=== PATIENT | female | born 1970 | race Caucasian/White ===

== ENCOUNTER 2020-01-20 08:42 | Emergency (ER) | payer SELFPAY ==
[2020-01-20] VITALS (11 sets, daily range): BP systolic 121–164; BP diastolic 83–104; PULSE 69–102; RESP 16–18; TEMP 36.4; O2SAT 97–100; BMI 25.8
--- NOTE | 2020-01-20 09:41 | PC.NURSE ---
US guided IV obtained. Blood drawn with cultures, labeled and taken to lab. Pt up to BR to provide urine sample.
[2020-01-20] MEDS: sodium chloride 0.9% 1,000 ML 999 ML IV (09:53)
--- NOTE | 2020-01-20 09:55 | CT_ITS ---
WS: [id number] CT ABDOMEN AND PELVIS WITH AND WITHOUT CONTRAST HISTORY: abd pain, intrauterine cryoablation history. Severe RIGHT pelvic pain. Status post surgery. TECHNIQUE: Unenhanced 5 mm axial imaging first performed through the abdomen. Post contrast imaging t hrough the abdomen and pelvis. Oral contrast has not been provided. Sagittal and coronal reformats a re submitted. All CT scans at [facility] use at least one of these dose optimization tech niques: automated exposure control; mA and/or kV adjustment per patient size (includes targeted exams where dose is matched to clinical indication); or iterative reconstruction. CONTRAST: Omnipaque 300; 95 mL IV. DLP: 1565.47 mGy.cm COMPARISON: 08/30/2010 Lung bases are clear. Normal size heart. Small hiatal hernia. Liver is normal size. No bile duct dila tation. Spleen is normal size with granulomata. Negative pancreas. Normally distended gallbladder. No bile duct dilatation. Normal pancreas. 8mm nodule associated with the RIGHT adrenal gland. Too smal l to characterize. Negative LEFT adrenal gland. Normal size RIGHT kidney. No obstruction. Negative LE FT kidney. Mild atherosclerosis aorta. Small central ventral abdominal wall hernia contains fat only. Moderate diffuse constipation. The appendix is normal. A few scattered sigmoid diverticula. Well-distended urinary bladder. No free fluid in the pelvis. Uterus is midline and slightly enlarged and heterogeneous. There are cystic areas which connect to the endometrium and probably related to th e prior endometrial ablation. Adenomyosis may appear similar. There is additional mild soft tissue th ickening in the RIGHT adnexa in the expected location of the round ligament and fallopian tube. This may be postsurgical changes associated with the recent fibroidectomy. No osseous abnormalities. CT/CT abdomen pelvis wo/w [id number] IMPRESSION: 1. No renal obstruction. 2. Normal appendix. 3. Cystic changes along the endometrium are probably related to prior adenomyo sis. 4. No free fluid or adenopathy. 5. Too small to characterize nodule social with the RIGHT adrenal gland. 6. Moderate constipation. Notified Dav Rehman DO at 01/20/2020 10:58 AM.
--- NOTE | 2020-01-20 09:58 | PC.NURSE ---
Urine sample obtained, labeled and sent to lab. Pt requesting pain meds, physician notified.
[2020-01-20 10:04] LABS: Alanine Aminotransferase 45 U/L (0-33); Albumin Level 3.9 g/dL (3.5-5.2); Alkaline Phosphatase 105 IU/L (35-105); Aspartate Amino Transferase 30 U/L (0-32); Blood Urea Nitrogen 16 mg/dL (6-20); Calcium 8.8 mg/dL (8.5-10.5); Carbon Dioxide 25 mmol/L (22-29); Chloride 102 mmol/L (98-107); Glomerular Filtration Rate 76.2 mL/min (90-130); Glucose 94 mg/dL (65-115); Lipase 22 U/L (13-60); Osmolality Calculated 285 mOsm/kg (285-295); Sodium 137 mmol/L (136-145); Total Bilirubin 0.3 mg/dL (0.15-1.2); Total Protein 6.9 g/dL (6.6-8.7)
[2020-01-20] MEDS: ondansetron 2 mg/ML SDV 2 mL 4 MG IVP (10:06)
[2020-01-20] MEDS: morphine 4 mg/mL SDV 1 mL IVP ×2 (10:06→10:50)
[2020-01-20 10:07] LABS: Anion Gap 14.2 (5-19); Potassium 4.2 mmol/L (3.5-5.1)
--- NOTE | 2020-01-20 10:22 | ED_ITS ---
HPI - Abdominal Pain General: Chief Complaint: Abdominal Pain Stated Complaint: Lower ABD pain/Post Surgery Time Seen by Provider: 01/20/20 09:00 History of Present Illness: HPI narrative: 49-year-old female comes in complaining of right lower quadrant pain for the last week its been getting increasingly intense she is moving around a lot on the exam table trying to find a comfortable position. She denies any hematuria or dysuria. She does have a history of some ovarian cysts and is previously a laparotomy for that as well as for endometriosis. She denies any fever denies any dysuria urgency or frequency. Denies flank pain. MD elicited complaint: abdominal pain Pertinent past history: other (Ovarian cyst and endometriosis) Onset (ago): week(s) (1) Pain Consistency: constant Location: RLQ Severity: severe Quality: cramping Radiation: none Migration to: no migration Exacerbating factors: nothing Relieving factors: nothing Associated Symptoms: Reports anorexia, chills, GI cramping, nausea and poor appetite; Denies belching, bloating, change in bowel habits, change in stool character, coffee ground emesis, constipation, diarrhea, dyspepsia, dysuria, excessive flatus, fever(s), heartburn, hematochezia, hematuria, hematemesis, fecal incontinence, loose stools, melena, syncope and vomiting Review of Systems Const: Reports: chills; Denies: fever(s) ENMT: Denies: throat pain, ear or mastoid pain, nasal discharge or nasal congestion Card: Denies: syncope Resp: Denies: dyspnea, productive cough or non-productive cough GI: Reports: nausea and GI cramping; Denies: vomiting, hematemesis, coffee ground emesis, heartburn, diarrhea, constipation, bloating, belching, excessive flatus, fecal incontinence, change in bowel habits, change in stool character, hematochezia or melena : Denies: dysuria or hematuria Skin/Breast: Denies: rash or pruritus Physical Exam Const: COMMON NORMALS: no acute distress GENERAL APPEARANCE: cooperative and comfortable ORIENTATION/CONSCIOUSNESS: Yes awake, Yes oriented to person, Yes oriented to place and Yes oriented to time HENMT: COMMON NORMALS: normocephalic, atraumatic, hearing grossly normal bilaterally, external ears normal, EAC's normal, TM's normal bilaterally, Normal nasal mucous membranes and turbinates present, moist oral mucous membranes and oropharynx normal HEAD & SCALP: normocephalic and atraumatic NOSE: Normal nasal mucous membranes and turbinates present EXTERNAL EAR: Yes external ears normal EXTERNAL AUDITORY CANAL: EAC's normal TYMPANIC MEMBRANE: TM's normal bilaterally Neck/C-Spine: COMMON NORMALS: no JVD Resp: COMMON NORMALS: normal respiratory effort, No retractions, No use of accessory muscles and clear to auscultation bilaterally AUSCULTATION: clear to auscultation bilaterally Cardio: COMMON NORMALS: no JVD, regular rate, regular rhythm and No murmurs present (Cardio) RATE: regular rate RHYTHM: regular rhythm GI: COMMON NORMALS: Soft to palpation and No hepatosplenomegaly present AUSCULTATION: Yes normoactive bowel sounds PALPATION: Yes Soft to palpation, Yes Tenderness to palpation present (GI) Details: RLQ, No Guarding due to palpation present (GI) and Yes No hepatosplenomegaly present Extremity: COMMON NORMALS: normal to inspection, capillary refill normal, no clubbing, cyanosis or edema, no calf tenderness and no pedal edema Neuro: SENSORIUM/ORIENTATION: Yes oriented to person, Yes oriented to place and Yes oriented to time Skin: COMMON NORMALS: no rashes or lesions noted GENERAL SKIN EXAM: no rashes or lesions noted Course Vital Signs: Vital signs: Vital Signs Temperature 97.6 F 01/20/20 08:56 Pulse Rate 69 01/20/20 12:30 Respiratory Rate 16 01/20/20 12:30 Blood Pressure 138/87 01/20/20 12:30 Pulse Oximetry 98 01/20/20 12:30 MDM - Abdominal Pain MDM Narrative: Medical decision making narrative: Discussed findings with the patient suspect uterine fibroids is the main cause of discomfort will discharge home with pain medications referral to gynecology Lab Data: Labs: Lab Results 01/20/20 01/20/20 01/20/20 Range/Units 09:41 09:41 09:50 WBC Cancelled Corrected WBC Cancelled RBC Cancelled Hgb Cancelled Hct Cancelled MCV Cancelled MCH Cancelled MCHC Cancelled RDW Cancelled Plt Count Cancelled MPV Cancelled Gran % Cancelled Neut % (Auto) Cancelled Lymph % (Auto) Cancelled [place] % (Auto) Cancelled Eos % (Auto) Cancelled Baso % (Auto) Cancelled Neut # (Auto) Cancelled Lymph # (Auto) Cancelled [place] # (Auto) Cancelled Eos # (Auto) Cancelled Baso # (Auto) Cancelled Absolute Gran (aut o) Cancelled Nucleated RBC % (a uto) Cancelled Nucleated RBCs # Cancelled Sodium 137 (136-145) mmol/L Potassium 4.2 (3.5-5.1) mmol/L Chloride 102 (98-107) mmol/L Carbon Dioxide 25 (22-29) mmol/L Anion Gap 14.2 (5-19) BUN 16 (6-20) mg/dL Creatinine 0.8 (0.5-0.9) mg/dL GFR Calculation 76.2 L (90-130) mL/min Glucose 94 (65-115) mg/dL Calculated Osmolal ity 285 (285-295) mOsm/k g Calcium 8.8 (8.5-10.5) mg/dL Total Bilirubin 0.3 (0.15-1.2) mg/dL AST 30 (0-32) U/L ALT 45 H (0-33) U/L Alkaline Phosphata se 105 (35-105) IU/L Total Protein 6.9 (6.6-8.7) g/dL Albumin 3.9 (3.5-5.2) g/dL Globulin 3.0 (1.3-4.6) g/dL Lipase 22 (13-60) U/L Urine Color Yellow (Yellow) Urine Appearance Clear (CLEAR) Urine pH 6 (5-7) Ur Specific Gravit y 1.010 (1.005-1.030) Urine Protein Neg (Negative) Urine Glucose (UA) Norm (Normal) Urine Ketones Negative (Negative) Urine Blood 2+ H (Negative) Urine Nitrate Negative (Negative) Urine Bilirubin Neg (Negative) Urine Urobilinogen Norm (Negative) mg/dL Ur Leukocyte Tamika ase Negative (Negative) Urine RBC 0-4 H (0-2) /hpf Urine WBC 0-4 H (0-5) /hpf Ur Squamous Epith Cells 0-4 H (0-5) /hpf Amorphous Sediment Not Reportable Urine Bacteria 1+ H (NONE) /hpf 11/16/20 Range/Units 10:50 WBC 15.5 H Corrected WBC RBC 4.66 Hgb 14.1 Hct 44.6 MCV 95.7 MCH 30.3 MCHC 31.6 RDW 13.3 Plt Count 360 MPV 9.0 Gran % Neut % (Auto) 75.5 Lymph % (Auto) 18.7 [place] % (Auto) 4.1 Eos % (Auto) 0.8 Baso % (Auto) 0.4 Neut # (Auto) 11.67 H Lymph # (Auto) 2.9 [place] # (Auto) 0.6 Eos # (Auto) 0.1 Baso # (Auto) 0.1 Absolute Gran (aut o) Nucleated RBC % (a uto) 0 Nucleated RBCs # 0.0 Sodium (136-145) mmol/L Potassium (3.5-5.1) mmol/L Chloride (98-107) mmol/L Carbon Dioxide (22-29) mmol/L Anion Gap (5-19) BUN (6-20) mg/dL Creatinine (0.5-0.9) mg/dL GFR Calculation (90-130) mL/min Glucose (65-115) mg/dL Calculated Osmolal ity (285-295) mOsm/k g Calcium (8.5-10.5) mg/dL Total Bilirubin (0.15-1.2) mg/dL AST (0-32) U/L ALT (0-33) U/L Alkaline Phosphata se (35-105) IU/L Total Protein (6.6-8.7) g/dL Albumin (3.5-5.2) g/dL Globulin (1.3-4.6) g/dL Lipase (13-60) U/L Urine Color (Yellow) Urine Appearance (CLEAR) Urine pH (5-7) Ur Specific Gravit y (1.005-1.030) Urine Protein (Negative) Urine Glucose (UA) (Normal) Urine Ketones (Negative) Urine Blood (Negative) Urine Nitrate (Negative) Urine Bilirubin (Negative) Urine Urobilinogen (Negative) mg/dL Ur Leukocyte Tamika ase (Negative) Urine RBC (0-2) /hpf Urine WBC (0-5) /hpf Ur Squamous Epith Cells (0-5) /hpf Amorphous Sediment Urine Bacteria (NONE) /hpf Discharge Plan Discharge Patient Disposition: Home Clinical Impression: Uterine fibroid Condition: Stable Prescriptions: New hydrocodone-acetaminophen 5-325 mg tablet 1 tab PO Q6H PRN (Reason: pain) Qty: 20 RF: 0 Zofran 4 mg tablet 4 mg PO Q6H PRN (Reason: nausea and vomiting) Qty: 15 RF: 0 Discharge Orders: Discharge Order (Routine); Ordered 01/20/20 Ordered By: Dav Rehman Activity Restrictions/Additional Instructions: Case management will make referral to gynecology for further evaluation. Coding Level of Care Code ED [place] [employer] Operator for [place] Fwd Exam Comprehensive
--- NOTE | 2020-01-20 10:26 | PC.NURSE ---
Pt in ct
[2020-01-20] MEDS: iohexol 300 mg/mL 100 mL Btl IV (10:27)
[2020-01-20 10:34] LABS: Add Urine Microscopic? YES; Bacteria Urine 1+ /hpf; Bilirubin Urine Neg (Negative); Blood Urine 2+ (Negative); Glucose Urine UA Norm (Normal); Ketones Urine Negative (Negative); Leukocyte Esterase Urine Negative (Negative); Nitrate Urine Negative (Negative); Protein Urine Neg (Negative); RBC Urine 0-4 /hpf (0-2); Squamous Epithelial Cell Urine 0-4 /hpf (0-5); Urine Appearance Clear (CLEAR); Urine Color Yellow (Yellow); Urobilinogen Urine Norm (Negative); WBC Urine 0-4 /hpf (0-5); pH Urine 6 (5-7)
--- NOTE | 2020-01-20 10:53 | PC.NURSE ---
CBC redrawn, labeled and sent to lab.
--- NOTE | 2020-01-20 11:07 | US_ITS ---
NOTE: Report was unsigned for reason: Order was edited. Original Signature date and time was: 01/20/20 @12:12 WS: [id number] TRANSABDOMINAL AND TRANSVAGINAL PELVIC ULTRASOUND HISTORY: pelvic pain COMPARISON: CT 01/20/2020. Uterus: Anteverted uterus measures 9.8 x 6.2 x 6.3 cm. Uterus is enlarged and lobulated and heterogeneous. There are areas of mixed echogenicity in the myometrium and extending to the junctional zone. The largest area in the anterior uterus measures 2.5 x 1.9 x 2.8 cm and is probably a fibroid. There are additional scattered areas of mixed echogenicity. Endometrium: Poorly visualized endometrium. Right ovary: 1.1 x 2.0 x 2.5 cm. No solid or cystic mass. Left ovary: 2.7 x 1.4 x 2.0 cm. No solid or cystic mass. MTDD US/US pelvic with transvaginal IMPRESSION: 1. Enlarged heterogeneous uterus. Most consistent with a fibroid uterus. 2. Endometrium is not visualized. This may be due to the position of the fibro ids with a prior ablation. Direct visualization and follow-up with MILITARY NURSE may be n ecessary to exclude endometrial neoplasm.
[2020-01-20 11:13] LABS: Basophils # 0.1 10^3/uL (0.0-0.1); Basophils % 0.4 %; Eosinophils # 0.1 10^3/uL (0.0-0.8); Eosinophils % 0.8 %; Hematocrit 44.6 % (37.0-47.0); Hemoglobin 14.1 g/dL (11.5-15.3); Lymphocytes # 2.9 10^3/uL (0.8-4.8); Lymphocytes % 18.7 %; Mean Corpuscular HGB Conc 31.6 g/dL (30.0-36.0); Mean Corpuscular Hemoglobin 30.3 pg (28.0-34.0); Mean Corpuscular Volume 95.7 fL (81-99); Monocytes # 0.6 10^3/uL (0.2-0.9); Monocytes % 4.1 %; Neutrophils # 11.67 10^3/uL (1.8-7.7); Neutrophils % 75.5 %; Nucleated Red Blood Cells % 0 %; Platelet Count 360 10^3/cmm (130-400); Red Blood Count 4.66 10^6/uL (4.1-5.3); Red Cell Distribution Width 13.3 % (12.1-15.1); White Blood Count 15.5 10^3/uL (4.0-10.0)
--- NOTE | 2020-01-20 11:18 | PC.NURSE ---
Pt pain still a 09/12. Pt updated on new order for US. Pt has call light in reach.
[2020-01-20] MEDS: ketorolac 30 mg/mL INJ IVP (11:33)
--- NOTE | 2020-01-20 12:22 | DCPLANNER ---
adult education manager was asked to schedule a follow up appointment for patient with [facility]. adult education manager called the [facility], spoke with Emi, gave clinic patients information. adult education manager was told that patients information would be printed and reviewed. Clinic will call patient with appointment information.
--- NOTE | 2020-01-22 13:26 | DCPLANNER ---
Addendum entered by Paige Reyes 01/23/20 09:48: Patients called case management associate asking about patients follow up appointment. financial compliance manager gave patients the appointment information. Patient does not have insurance, case management associate is mailing patient both of the marketing financial analyst applications to fill out and turn back in. financial compliance manager explained that if patient does not have a primary care physician that patient can fill out both of the financial and can get established with a primary care physician in [facility] or in [place] where there is [facility]. financial compliance manager called [facility] and told the clinic that case management associate informed patient of the scheduled appointment and mailed patient both of the marketing financial analyst applications. Original Note: Patient has a follow up appointment scheduled for Tuesday, February 11, 2020 at 8:[address] Da Silva. Clinic will call patient with appointment information.
--- NOTE | 2020-02-18 14:35 | DCPLANNER ---
Patient had a follow up appointment scheduled for 02.11.20 with [facility] - patient did attend appointment.
== END 2020-01-20 12:32 | disposition home or self-care (01) ==
PROVIDERS: Emergency Provider Family Medicine
DX: D25.9 Leiomyoma of uterus, unspecified (principal)
CPT/HCPCS: 12345; 36415; 74178; 76830; 76856; 80053; 81001; 83690; 85025; 96361; 96374; 96375; 99283; J1885; J2270; J2405; J7030; Q9967

== ENCOUNTER → 2020-05-04 09:19 | Outpatient (BNVA) | payer OTHER, SELFPAY | PROVIDERS: Visit Provider Obstetrics & Gynecology | DX: D25.9 Leiomyoma of uterus, unspecified (principal); G89.29 Other chronic pain; R10.2 Pelvic and perineal pain | CPT/HCPCS: 87635 ==

== ENCOUNTER 2020-05-06 13:49 | Observation (INO) | payer OTHER, SELFPAY ==
[2020-05-04 11:09] VITALS: BMI 25.7
--- NOTE | 2020-05-04 11:38 | ANES.PREANE2 ---
Pre-Anesthetic Assessment Pre-Anesthetic Assessment: Height/Weight: Height 1.73 m Weight 76.657 kg Preop Diagnosis: Chronic pelvic pain, post endometrial ablation syndrome, uterine fibroid Proposed Procedure: Operation Date: 05/06/20 07:00 Proposed Procedures p Laparoscopic Assist Vaginal Hystectomy 63494 R10.2 D25.9(Not Applicable) - Ethan Da Silva MD Familial anesthetic complications: None Social: Social History: Tobacco and No alcohol Comment: previous ETOH and drug abuse, occassional MJ use Exam: Pre-Anes Outpt Exam: alert, oriented x 3, clear to auscultation bilaterally and regular rate & rhythm Airway: Cervical ROM: WNL MP: 2 Dentition: False CV/HEM: CV/HEM: HTN Hepatic: Hepatic: Hepatitis (Hep C) GI: GI: GERD Anesthetic Plan: ASA status: 2 Anesthesia: General Risk of > 500 ml blood loss (7ml/kg in children): No PFSH Anesthesia PFSH: Medical History Chronic pelvic pain in female Uterine fibroid Referral from Dr. Geronimo Surgical History (Updated 05/04/20 @ 07:58 by Tomasa Patton RN) Status post endometrial ablation Family History Mother Clotting disorder Diabetes Hypertension Thyroid condition Father Hyperlipidemia Heart disease Denies family history of Colon cancer Ovarian cancer Anesthesia complication Bleeding disorder Uterine cancer Stroke Social History (Updated 05/04/20 @ 07:59 by Tomasa Patton RN) Smoking and tobacco status: current every day smoker cigarettes Packs smoked per day: 1 Second hand smoke exposure: Yes Smoking risk assessment/counseling performed?: Yes Alcohol intake: former Year of sobriety/quit date alcohol: 2016 Other details last substance use: history of IV drug use Female Reproductive History: Date of last menstrual period: 04/28/20 Data Anesthesia Cardiac Studies: No Data to Display
[2020-05-04 11:55] LABS: Basophils # 0.1 10^3/uL (0.0-0.1); Basophils % 0.6 %; Eosinophils # 0.1 10^3/uL (0.0-0.8); Eosinophils % 1.3 %; Hematocrit 49.1 % (37.0-47.0); Hemoglobin 15.7 g/dL (11.5-15.3); Lymphocytes # 3.1 10^3/uL (0.8-4.8); Lymphocytes % 34.8 %; Mean Corpuscular Hemoglobin 29.4 pg (28.0-34.0); Mean Corpuscular Volume 91.9 fL (81-99); Mean Platelet Volume 9.3 fL (7.4-10.4); Monocytes # 0.5 10^3/uL (0.2-0.9); Monocytes % 5.2 %; Neutrophils # 5.13 10^3/uL (1.8-7.7); Neutrophils % 57.7 %; Nucleated Red Blood Cells % 0 %; Platelet Count 408 10^3/cmm (130-400); Red Blood Count 5.34 10^6/uL (4.1-5.3); Red Cell Distribution Width 13.6 % (12.1-15.1); White Blood Count 8.9 10^3/uL (4.0-10.0)
[2020-05-04 12:17] LABS: OR HCG Qualitative Urine Negative (Negative)
[2020-05-04 12:22] LABS: Bilirubin Urine Neg (Negative); Blood Urine Neg (Negative); Glucose Urine UA Norm (Normal); Ketones Urine Negative (Negative); Leukocyte Esterase Urine Negative (Negative); Nitrate Urine Positive (Negative); Protein Urine Neg (Negative); Urine Appearance SL Hazy (CLEAR); Urine Color Yellow (Yellow); Urobilinogen Urine Norm (Negative); pH Urine 6 (5-7)
[2020-05-04 12:23] LABS: Add Urine Microscopic? YES
[2020-05-04 12:25] LABS: Add Urine Culture? Yes; Bacteria Urine 3+ /hpf; RBC Urine 0-4 /hpf (0-2); Squamous Epithelial Cell Urine 0-4 /hpf (0-5); WBC Urine 0-4 /hpf (0-5)
[2020-05-06] VITALS (23 sets, daily range): BP systolic 108–152; BP diastolic 62–93; PULSE 56–85; RESP 16–20; TEMP 36.5–36.7; O2SAT 93–100; BMI 24.1
--- NOTE | 2020-05-06 09:21 | ANES.PAUD2 ---
Pre-Anesthetic Update Pre-Anesthetic Assessment: Date of Surgery/Procedure: 05/06/20 Preop Diagnosis: Chronic pelvic pain, post endometrial ablation syndrome, uterine fibroid Proposed Procedure: Operation Date: 05/06/20 10:35 Proposed Procedures p Laparoscopic Assist Vaginal Hystectomy 84905 R10.2 D25.9(Not Applicable) - Ethan Da Silva MD Any changes to Pre-Anesthetic Assessment?: No Last Intake: Intake Last Liquid Date 05/05/20 Last Solid Date 05/05/20 Labs Last 48hrs: Laboratory Results - last 48 hr 05/04/20 05/04/20 05/04/20 11:35 11:35 11:35 WBC 8.9 RBC 5.34 H Hgb 15.7 H Hct 49.1 H MCV 91.9 MCH 29.4 MCHC 32.0 RDW 13.6 Plt Count 408 H MPV 9.3 Neut % (Auto) 57.7 Lymph % (Auto) 34.8 [place] % (Auto) 5.2 Eos % (Auto) 1.3 Baso % (Auto) 0.6 Neut # (Auto) 5.13 Lymph # (Auto) 3.1 [place] # (Auto) 0.5 Eos # (Auto) 0.1 Baso # (Auto) 0.1 Nucleated RBC % (a uto) 0 Nucleated RBCs # 0.0 Sodium Potassium Chloride Carbon Dioxide Anion Gap BUN Creatinine GFR Calculation Glucose Calculated Osmolal ity Calcium Total Bilirubin AST ALT Alkaline Phosphata se Total Protein Albumin Globulin Urine Color Yellow Urine Appearance Sl hazy Urine pH 6 Ur Specific Gravit y 1.010 Urine Protein Neg Urine Glucose (UA) Norm Urine Ketones Negative Urine Blood Neg Urine Nitrate Positive H Urine Bilirubin Neg Urine Urobilinogen Norm Ur Leukocyte Tamika ase Negative Urine RBC 0-4 H Urine WBC 0-4 H Ur Squamous Epith Cells 0-4 H Amorphous Sediment Not Reportable Urine Bacteria 3+ H Urine HCG, Qual Negative Blood Type Rho(D) Type Antibody Screen 05/04/20 05/04/20 11:35 11:35 WBC RBC Hgb Hct MCV MCH MCHC RDW Plt Count MPV Neut % (Auto) Lymph % (Auto) [place] % (Auto) Eos % (Auto) Baso % (Auto) Neut # (Auto) Lymph # (Auto) [place] # (Auto) Eos # (Auto) Baso # (Auto) Nucleated RBC % (a uto) Nucleated RBCs # Sodium Cancelled Potassium Cancelled Chloride Cancelled Carbon Dioxide Cancelled Anion Gap Cancelled BUN Cancelled Creatinine Cancelled GFR Calculation Cancelled Glucose Cancelled Calculated Osmolal ity Cancelled Calcium Cancelled Total Bilirubin Cancelled AST Cancelled ALT Cancelled Alkaline Phosphata se Cancelled Total Protein Cancelled Albumin Cancelled Globulin Cancelled Urine Color Urine Appearance Urine pH Ur Specific Gravit y Urine Protein Urine Glucose (UA) Urine Ketones Urine Blood Urine Nitrate Urine Bilirubin Urine Urobilinogen Ur Leukocyte Tamika ase Urine RBC Urine WBC Ur Squamous Epith Cells Amorphous Sediment Urine Bacteria Urine HCG, Qual Blood Type O Positive Rho(D) Type Positive Antibody Screen Negative Exam: Pre-Anes Outpt Exam: alert, oriented x 3, clear to auscultation bilaterally and regular rate & rhythm Cardiac Studies: No Data to Display
--- NOTE | 2020-05-06 09:24 | W.PM.OPSUD ---
Surgery/Procedure H&P Update DATE OF PROCEDURE: May 06, 2020 DATE H&P PERFORMED: 05/04/20 H&P UPDATE INFORMATION: I have reviewed H&P completed within last 30 days, I have examined patient prior to procedure and No changes to prior documentation PREOP DIAGNOSIS: Chronic pelvic pain, post endometrial ablation syndrome, uterine fibroid PLANNED PROCEDURE: Operation Date: 05/06/20 10:35 Proposed Procedures p Laparoscopic Assist Vaginal Hystectomy 35004 R10.2 D25.9(Not Applicable) - Ethan Da Silva MD
[2020-05-06] MEDS: sodium chloride 0.9% 500 ML IV (10:14)
[2020-05-06 10:46] LABS: Alanine Aminotransferase 32 U/L (0-33); Albumin Level 3.8 g/dL (3.5-5.2); Alkaline Phosphatase 95 IU/L (35-105); Aspartate Amino Transferase 23 U/L (0-32); Blood Urea Nitrogen 10 mg/dL (6-20); Calcium 8.7 mg/dL (8.5-10.5); Carbon Dioxide 27 mmol/L (22-29); Chloride 104 mmol/L (98-107); Glomerular Filtration Rate 88.9 mL/min (90-130); Glucose 83 mg/dL (65-115); Osmolality Calculated 282 mOsm/kg (285-295); Sodium 137 mmol/L (136-145); Total Bilirubin 0.4 mg/dL (0.15-1.2); Total Protein 6.8 g/dL (6.6-8.7)
[2020-05-06] MEDS: ceFOXitin 2,000 MG in sodium chloride 0.9% (plus) 50 ML 100 MG IV (11:21)
--- NOTE | 2020-05-06 12:41 | SUR.OPER ---
updated of surgical status
--- NOTE | 2020-05-06 13:10 | P.OP_ITS ---
Operative Report Date of procedure: May 06, 2020 Pre-op Diagnosis: Chronic pelvic pain, post endometrial ablation syndrome, uterine fibroid Post-op diagnosis: same Procedure Done: Laparoscopic-assisted vaginal hysterectomy Cystoscopy Specimens removed/disposition: Uterus left and right fallopian tubes and ovaries Surgeon: Ethan Da Silva MD Anesthesia: General Estimated blood loss (mL): 100 IV fluids (mL): 1,500 Urine output (mL): 400 Complications: None Findings: Enlarged irregular uterus Condition: stable Disposition: PACU Brief History: 49-year-old female with chronic pelvic pain and fibroid uterus with post endometrial ablation syndrome Procedure: After discussing informed consent again, the patient was taken to the operating room where general anesthesia was administered. She was placed in the dorsal lithotomy position in low stirrups and prepped and draped in sterile fashion. Pre-Procedure Time-Out verifying the correct patient identity, correct procedure verified with consent, correct site and side, correct patient position, availability of correct implants and any special equipment or requirements was performed and acknowledge by the OR team. After the initial preparation, the procedure commenced at the vagina. With a Bookwalter vaginal retractor was place to visualize the cervix; the anterior and posterior lips of the cervix were separately grasped and clamped with homer tooth tenaculum. The cervix was then dilated to a #6 hegar dilator and a uterine manipulator within the uterine cavity for manipulation purposes being careful not to puncture the uterus. A Law catheter was placed in the bladder. Attention was then turned to the abdomen. The umbilical region was infiltrated with 0.5% Marcaine with epinephrine. Following infiltration with Marcaine, an intraumbilical incision was made and the Verres needle was gently advanced taking care to feel for the typical sensation of penetrating the peritoneum. With CO2 infiltration, an opening pressure of 5 mmHg was noted, and following this, a pneumoperitoneum of 15 mmHg was created. A 5 mm Optiview trocar was then passed through the same incision under direct visualization. Trocar was removed and the laparoscope was then inserted through the trocar sleeve. Visualization of the peritoneal cavity was then obtained and a brief inspection did not reveal any signs of complications from entry. Under direct observation, a second incision was made 3 cm above the symphysis pubis, and a 5 mm trocar and sleeve were admitted into the abdomen under direct, laparoscopic visualization, 5mm flank ports were then placed later ally on left sides taking care to respect anatomical landmarks and vessels without complication. Once the placement of the ports was complete, the actual laparoscopic procedure began. The pelvic contents were visualized and noted an enlarged irregular uterus, deep cul-de-sac, normal bilateral fallopian tubes and ovaries normal, normal appendix, and both ureters were identified crossing the pelvic brim and pelvic sidewall. The left infundibulopelvic ligament was grasped and was coagulated/sealed and then transected with the Voyant device. The mesosalpinx was then sequentially, clamped, ligated, and cut using the Voyant device working alongside the length of the tube and towards the cornua. The left round ligament was grasped coagulated/sealed and transected using Voyant device. The left broad ligament was opened down to the level of the uterine artery and vein. The right infundibulopelvic ligament was grasped and the tuboovarian ligament was coagulated/sealed and then transected with the Voyant device. The mesosalpinx was then sequentially, clamped, ligated, and cut using the Voyant device working alongside the length of the tube and towards the cornua. The right round ligament was grasped coagulated/sealed and then transected with the Voyant device, and the right broad ligament was opened down to the level of the right uterine artery and vein. Peritoneum of the lower uterine segment was entered using Voyant, and the bladder was dissected off the lower uterine segment using blunt dissection. Careful inspection revealed complete hemostasis. Attention was then turned to the vaginal aspect of the surgery. The Law catheter was clamped. A Bookwalter vaginal retractor was placed in the vagina and the uterine manipulator was removed. The tenaculum was repositioned ant eriorly and posteriorly. A circumferential incision was made at the cervical vaginal reflection using cautery. This was undermined first anteriorly and a colpotomy made without difficulty. This was then repeated posteriorly and a similar colpotomy made. Beginning first on the patient's left, the uterosacral and cardinal ligament was clamped, sealed, divided with the Enseal device and suture ligated. Two bites were required to reach the previous dissection margin of the left side. The same process was then repeated on the patient's right hand side, at which point, the specimen was completely freed. Once the sutures had been placed and the pedicles secured, the uterus along with both tubes and ovaries were removed transvaginally without difficulty. All pedicles were inspected and hemostasis was confirmed. The patietn was given indigo carmine. The vaginal vault was then oversewn with a running locking Vicryl suture, securing first the posterior edge of the cuff followed by the anterior edge. Good hemostasis was obtained. Two [id number] sutures were then placed across the vaginal vault to close it. Once these had been tied off, all sutures were trimmed. Then the Law catheter was removed and cystoscope was inserted. The bladder was filled with sterile water. Complete evaluation of the bladder mucosa was performed noting no lacerations, dimpling, tears, bleeding of the mucosa or muscular layers. Both ureteral orifices were identified. Prompt excretion of blue urine from both ureteral orifices was noted. Cystoscope was withdrawn. The Law catheter was replaced. All instruments were removed from the vagina at this time. Then attention was again turned back to the abdomen and inspected the abdomen to ensure complete hemostasis. Once the entire abdomen was inspected. The ports were then removed under direct visualization being sure to note hemostasis of the port sites on removal. The incisions were then closed with interrupted Monocryl sutures and Exofin adhesive. The patient tolerated the procedure well, anesthesia reversed, and the patient was taken to the recovery room in stable condition. All sponges, instruments, and sharps were counted and correct x 3.
[2020-05-06] MEDS: fentaNYL 50 mcg/mL INJ 2mL IVP (13:33)
[2020-05-06] MEDS: ondansetron 2 mg/ML SDV 2 mL 4 MG IVP (13:34)
[2020-05-06] MEDS: HYDROmorphone 1 mg/mL INJ 1 mL 0.5 MG IVP (14:27)
--- NOTE | 2020-05-06 16:00 | ANE.PACU2 ---
Inpatient post-anesthesia follow up: Airway intact: Yes Vital signs: Temperature 97.8 F Pulse Rate 78 Respiratory Rate 18 Blood Pressure 131/77 Pulse Oximetry 96 Oxygen Delivery Me thod Room Air Oxygen Flow Rate Fraction of Inspir ed Oxygen Hydration adequate: Yes Nausea and vomiting: No Pain level: 2 Mental status: Baseline
[2020-05-06] MEDS: HYDROcodone-acetaminophen 5-325 mg Tablet PO ×2 (16:58→23:05)
[2020-05-06] MEDS: dextrose 5%-lactated ringers 1,000 ML 125 ML IV (17:04)
[2020-05-06] MEDS: ketorolac 30 mg/mL INJ IVP (18:26)
[2020-05-06] MEDS: nicotine 21 mg Patch 1 PATCH TRANSDERMA (18:26)
[2020-05-06] MEDS: alum-mag-hydroxide-sime 30 mL UDC PO (18:36)
--- NOTE | 2020-05-06 22:00 | PC.NURSE ---
pt walked two laps around the OB department.
[2020-05-07] MEDS: alum-mag-hydroxide-sime 30 mL UDC PO (00:11)
[2020-05-07] MEDS: ketorolac 30 mg/mL INJ IVP (00:11)
[2020-05-07] MEDS: dextrose 5%-lactated ringers 1,000 ML 125 ML IV (00:24)
[2020-05-07 00:44] VITALS: BP 120/75; PULSE 69; RESP 17; O2SAT 100
[2020-05-07 02:13] VITALS: PULSE 69; RESP 17; O2SAT 100
[2020-05-07 04:45] VITALS: BP 131/77; PULSE 78; RESP 18; TEMP 36.6; O2SAT 96
[2020-05-07 05:33] LABS: Hematocrit 38.8 % (37.0-47.0); Hemoglobin 12.4 g/dL (11.5-15.3); Mean Corpuscular Hemoglobin 29.8 pg (28.0-34.0); Mean Corpuscular Volume 93.3 fL (81-99); Mean Platelet Volume 9.7 fL (7.4-10.4); Platelet Count 324 10^3/cmm (130-400); Red Blood Count 4.16 10^6/uL (4.1-5.3); Red Cell Distribution Width 13.7 % (12.1-15.1); White Blood Count 14.3 10^3/uL (4.0-10.0)
--- NOTE | 2020-05-07 06:24 | PC.NURSE ---
pt walked 2 laps around the OB department with repairer typewriter.
[2020-05-07] MEDS: HYDROcodone-acetaminophen 5-325 mg Tablet PO (07:17)
[2020-05-07] MEDS: docusate sodium 100 mg Capsule PO (09:14)
[2020-05-07] MEDS: ibuprofen 800 mg tablet PO (09:15)
[2020-05-07 09:22] VITALS: BP 108/70; PULSE 86; RESP 15; TEMP 36.6
--- NOTE | 2020-05-07 10:00 | P.DS_ITS ---
Discharge Providers CHIPPER Date of Admission: 05/06/20 13:49 Date of Discharge: 05/07/20 Attending Provider at Admission: Ethan Da Silva MD Attending Provider at Discharge: Ethan Da Silva MD Reason for Visit Reason for Visit: Chronic oelvic pain Hospital Course Hospital Course 49-year-old female with a history of abnormal uterine bleeding unresponsive to medical management uterine fibroid and chronic pelvic pain, with post ablation syndrome. Admitted for planned laparoscopic-assisted vaginal hysterectomy with bilateral salpingo-oophorectomy. The procedure was performed without complications. Postop overnight observation uneventful. Tolerating diet well. Ambulating without difficulty. Pain under control with medication. Physical Exam Narrative: EXAM NARRATIVE: GA: Alert and oriented ?3. HEENT: WNL. Heart: Regular rate and rhythm. Lungs: Clear to auscultation bilaterally. Abdomen: Bowel sounds present, nontender, minimal tenderness, incision clean and dry, no redness, pain or edema. [place]: No bleeding. Extremities: No edema, no cyanosis, no calves pain. Urinary Catheter Management^: Law: Cath Placed During This Visit: yes, but has since been removed by the nurse Reason for Continuing Indwelling Catheter: Decision to DC Catheter Urinary Catheter Date of Insertion: 05/06/20 Urinary Catheter Time of Insertion: 11:47 Date Urinary Catheter Removed: 05/07/20 Time Urinary Catheter Discontinued: 07:05 Discharge Data Data Completed and Pending: Pending at discharge Category Date Time Status ES surgery / GI i mages Routine Exams 05/06/20 10:51 Taken Pathology: Surgic al [PTH] Routine Pth 05/06/20 13:37 Received Labs from last 24 hours 05/07/20 05/06/20 05:07 10:07 WBC 14.3 H RBC 4.16 Hgb 12.4 Hct 38.8 MCV 93.3 MCH 29.8 MCHC 32.0 RDW 13.7 Plt Count 324 MPV 9.7 Sodium 137 Potassium 4.0 Chloride 104 Carbon Dioxide 27 Anion Gap 10.0 BUN 10 Creatinine 0.7 GFR Calculation 88.9 L Glucose 83 Calculated Osmolal ity 282 L Calcium 8.7 Total Bilirubin 0.4 AST 23 ALT 32 Alkaline Phosphata se 95 Total Protein 6.8 Albumin 3.8 Globulin 3.0 Vitals: Last Vital Signs Temp 97.9 F 05/07/20 09:22 Pulse 86 05/07/20 09:22 Resp 15 05/07/20 09:22 BP 108/70 05/07/20 09:22 Pulse Ox 96 05/07/20 04:45 Discharge Plan Discharge Patient Disposition: Home Condition: Stable Prescriptions: [place] 5-325 mg tablet 1 tab PO Q4H PRN (Reason: pain) Qty: 30 RF: 0 Continued ibuprofen 800 mg tablet 800 mg PO TID PRN (Reason: pain) Qty: 90 RF: 1 Discharge Orders: Discharge Order (Routine); Ordered 05/07/20 Ordered By: Ethan Da Silva Referrals: Ethan Da Silva MD [Physician] - 05/07/20 3:45 pm (* Your 2 week incision check is with Dr. Da Silva on 05/19/2020 at 3:45 * Your 6 week follow up appointment is with Dr. Da Silva on 06/15/2020 at 2:00pm) Discharge Diet: Usual diet Discharge Activity: Increase activity as tolerated Patient Instructions: Laparoscopically Assisted Vaginal Hysterectomy (DC), Cystoscopy (DC), OB Abdominal Surgery - [facility], OB Discharge Report, OB Food/Drug Interaction Guide Activity Restrictions/Additional Instructions: 1. Please call [facility] on next working day to make your post-operative appointment in 2 weeks. 2. Please stay home until you come back to the clinic on first post-operative check up. 3. Please follow instructions on your medications CAREFULLY. 4. If you have abdominal incision, do not cover it unless dressing is necessary because of drainage. OK to shower, but avoid bath. Leave steri-strips until they fall off. If they are still on one week after surgery, you may remove them. 5. If you had vaginal surgery, your doctor may instruct you to take SITZ bath. 6. Yellow, blood tinged odorous vaginal discharge is usually normal after hysterectomy or vaginal surgeries. 7. No sexual intercourse, tampons, or douches until you are completely released from the post-operative care. 8. Avoid constipation by eating right and maybe using some Metamucil or Milk of Magnesia. 9. All prescription refills are given during the working hours. Please do no wait till it runs out. Call the clinic at [phone] before your medication runs out. The clinic will get in touch with your doctor to prescribe medications if necessary. 10. Please remain within 40 mile radius from our hospital because emergencies do happen now and then during the post-operative period. 11. If you have stairs at home, take one step at a time slowly and minimize the number of trips. It helps to stay in one floor for the next few days. No lifting except what you can lift by one hand until you are released from the post-operative care. 12. Driving is discouraged until you are well healed. It may be 3-4 weeks b efore you feel strong enough to drive. You should be able to turn and look through the rear window without pain and you should be able to push the brake pedal very hard without pain before you drive. No fast rules, but SAFETY should be your primary concern. DO NOT drive if you are on sedating medications such as narcotics. 13. Call the clinic (during working hours) to make urgent appointment or go to the Emergency room, if any of the following occurs: i. Vaginal bleeding becomes heavy, more than a period. ii. Incision becomes red and sore, or drains pus. iii. Your temperature is over 100.4 or you have chill. iv. IV site becomes red and swollen (a little ``knot?? is usually OK) v. Persistent nausea and vomiting vi. Persistent constipation or diarrhea vii. Rash or allergic reaction to medications. Discharge Attestations CHIPPER Time Spent in Discharge Care*: greater than 30 min Coding Level of Care Code Acute Equipment Specialist for Antonieta Staton
[2020-05-07 10:30] VITALS: BP 108/70; PULSE 86; RESP 15; TEMP 36.6
--- NOTE | 2020-05-07 11:42 | PC.RESP ---
SMOKING CESSATION INFORMATION SENT TO PATIENT.
== END 2020-05-07 10:30 | disposition home or self-care (01) ==
LOC: OR 05-07 07:37 → OBGYN 05-07 07:38 → OR 05-07 07:39 → OBGYN 05-07 07:39
PROVIDERS: Admitting Provider Obstetrics & Gynecology; Visit Provider Obstetrics & Gynecology
PROC: 0UT9FZZ Resection of Uterus, Via Natural or Artificial Opening With Percutaneous Endoscopic Assistance (ICD-10-PCS; CPT 58554; principal; 2020-05-06 10:35)
PROC: 0TJB8ZZ Inspection of Bladder, Via Natural or Artificial Opening Endoscopic (ICD-10-PCS; CPT 52000; 2020-05-06 10:35)
DX: R10.2 Pelvic and perineal pain (principal); D25.9 Leiomyoma of uterus, unspecified; I10 Essential (primary) hypertension; Z86.19 Personal history of other infectious and parasitic diseases; K21.9 Gastro-esophageal reflux disease without esophagitis; F17.210 Nicotine dependence, cigarettes, uncomplicated
CPT/HCPCS: 58554; 36415; 80053; 81001; 84703; 85025; 85027; 86850; 86900; 87077; 87086; 87186; 88307; 96365; G0378; J0131; J0694; J1100; J1170; J1885; J2405; J2704; J3010; J3490; J7040